=== PATIENT | female | born 1960 | race Caucasian/White ===

== ENCOUNTER 2016-12-25 07:05 | Day surgery (SDC) | payer BC ==
[~2016-12-25] VITALS: Ht 180.3 cm; Wt 102.1 kg
[~2016-12-25 07:05] MED LIST: BENADRYL25 MG PO; CYMBALTA30 MG PO; GABAPENTIN300 MG PO; NORCO 5-325 TA1 EACH PO; PRILOSEC20 MG PO; SIMVASTATIN20 MG PO; SUMATRIPTAN SUC25 MG SUB-Q
--- NOTE | 2016-12-25 08:42 | NUR ---
PT IS RESTING IN BED-ALERT,ORIENTED AND SUPPORTED BY HER MAGDI. PT HAS HAD BOTH SCOPE AND EGD BEFORE,AND SEEMED PREPARED. I FOUND BOTH TO BE PLEASANT AND PT REQUESTED PRAYER. WILL FOLLOW NEEDED
--- NOTE | 2016-12-25 09:54 | NUR ---
12/25/16 0954 Nilay Parsons SAT 100, O2 CHANGED TO 2L VIA NC.
--- NOTE | 2017-01-22 07:48 | OR ---
[facility] [address] [place], [place] [address] Signed DATE OF PROCEDURE: 12/25/16 PREOPERATIVE DIAGNOSES Family history of esophageal cancer (brother) and known reflux disease. History of tubular adenomas of colon, last colonoscopy 2013 ([place]). POSTOPERATIVE DIAGNOSES Distal ulcerative esophagitis with poor flap valve. Small polyp at 50 cm (excised). PROCEDURE PERFORMED Esophagogastroduodenoscopy with biopsy. Total colonoscopy to cecum with cold snare polypectomy x1 at 50 cm. SURGEON: Hiro Winn MD. ANESTHESIA: Intravenous sedation, Propofol infusion (Hiro Avitia CRNA). INDICATION This 55-year-old white woman is a patient of ARTIE Blanco, in [place], and has undergone colonoscopy and upper endoscopy in 2013 and 2011. She has been demonstrated to have tubular adenomas of the colon. She does have family history of esophageal cancer in her brother. She is known to have reflux herself and takes Omeprazole. It is unclear if she has Alicea's esophagus, but probably not. She is admitted at this time to undergo upper endoscopy on the basis of her reflux disease and family history of esophageal cancer as well as colonoscopy for surveillance of polyps. She does have "fibromyalgia" and has numerous medications, which will quite obviously impair routine intravenous sedation, and on that basis, Propofol infusional sedation is recommended. She understands as does her the risks of bleeding, infection, and perforation and wished to proceed with both upper and lower endoscopic evaluation. FINDINGS She was markedly tolerant to the Propofol infusion. She was administered at least 200 mcg/kg per minute of Propofol, normally an extremely high dose but just keeping her sedated without excessive sedation at all. The prep was good. On colonoscopy, there was a small sessile polyp at 50 cm, which was excised with snare polypectomy technique without cautery. Additionally, upper endoscopy demonstrated a poor flap valve and distal esophagitis with a linear type ulceration. There is no evidence of Alicea's epithelium. There was some small mucosal nodular changes of the mid esophagus that were innocuous. Remaining evaluation of the stomach, duodenum, and colon were normal. Electronically Signed By: HIRO WINN MD 01/22/17 0748 PATIENT NAME: REAL FIGUEROA OPERATIVE REPORT DATE OF : 64 PHYSICIAN: HIRO WINN MD REPORT #: [id number] REPORT IS CONFIDENTIAL AND NOT TO BE RELEASED WITHOUT AUTHORIZATION [facility] [address] [place], [place] [address] Signed DESCRIPTION OF PROCEDURE The patient was brought to the endoscopy suite and given topical Hurricaine spray hypopharyngeal anesthesia and placed in lateral decubitus position. She was given intravenous sedation with Propofol infusional technique. She required a surprisingly high amount of Propofol for adequate sedation. Full cardiopulmonary monitoring was maintained. The bite block was placed. An Olympus video upper endoscope passed in the hypopharynx. The vocal cords appeared normal. Scope was advanced into the esophagus throughout its length. It appeared normal except in the distal portion where there was a linear ulceration. It did not look neoplastic. There were no varices and no signs of Alicea's epithelium. The scope was advanced to the stomach, which was insufflated with air. Rugal folds appeared normal as did the antrum. There was mild erythematous streaking of the antrum, but no ulcer. Pylorus was normal. Scope was passed through into the duodenum. Biopsies were taken there of a normal appearing duodenum to assess for celiac disease. The scope was withdrawn and biopsies then taken of the antrum for both CL O and pathologic testing. Retroflexed view was undertaken showing a poor flap valve consistent with hiatal hernia. The scope was withdrawn to the distal esophagus and the ulcerated area evaluated with narrow band imaging. There is no sign of suspicion with the ulcer, but it was clearly reflux-related. Biopsies were obtained of that and the surrounding distal esophagus. Scope was withdrawn. There were few flat mucosal nodular changes, not worrisome but biopsied nevertheless. Scope was then removed. Plans were then made for colonoscopy. Digital rectal examination was normal and Olympus video colonoscope was passed in the rectum and manipulated throughout the colon. The colon appeared to be quite redundant. With abdominal wall stabilization, the scope could attain intubation of the cecum itself. The ileocecal valve and appendiceal orifice were normal. Scope was then withdrawn. Careful examination upon withdrawal of scope showed no sign of abnormality until approximately 50 cm from the anus where a sessile small polyp was noted. Narrow band imaging confirmed this to be almost certainly an adenoma. The lesion was excised with cold snare polypectomy technique. There was no untoward bleeding. Specimen was passed for pathology. The remaining colon including sigmoid and rectum including retroflexed view showed no other abnormalities. Scope was removed and the patient was taken to recovery room in good condition. CONCLUDING DIAGNOSES Distal esophageal ulcerative esophagitis. Sessile polyp, adenomatous type at 50 cm. PLAN We will review her pathology reports. We would recommend repeat endoscopic evaluation in 3 years, sooner if clinically indicated. It will be essential that she have Propofol for infusion as she is highly tolerant of sedating medications. She will return to the Electronically Signed By: HIRO WINN MD 01/22/17 0748 PATIENT NAME: REAL FIGUEROA OPERATIVE REPORT DATE OF : 64 PHYSICIAN: HIRO WINN MD REPORT #: [id number] REPORT IS CONFIDENTIAL AND NOT TO BE RELEASED WITHOUT AUTHORIZATION [facility] [address], [place] [address] Signed ongoing care of ARTIE Blanco, in [place]. MD GRECIA Raygoza/Leandra /[id number] cc: ARTIE Blanco Electronically Signed By: HIRO WINN MD 01/22/17 0748 PATIENT NAME: REAL FIGUEROA OPERATIVE REPORT DATE OF : 64 PHYSICIAN: HIRO WINN MD REPORT #: [id number] REPORT IS CONFIDENTIAL AND NOT TO BE RELEASED WITHOUT AUTHORIZATION
== END 2016-12-25 10:24 | disposition home or self-care (01) ==
LOC: OPS 07:05 → DS 07:05 → OPS 08:15
PROVIDERS: Surgery
PROC: 0DB28ZX Excision of Middle Esophagus, Via Natural or Artificial Opening Endoscopic, Diagnostic (ICD-10-PCS; 2016-12-25)
PROC: 0DB38ZX Excision of Lower Esophagus, Via Natural or Artificial Opening Endoscopic, Diagnostic (ICD-10-PCS; 2016-12-25)
PROC: 0DB68ZX Excision of Stomach, Via Natural or Artificial Opening Endoscopic, Diagnostic (ICD-10-PCS; 2016-12-25)
PROC: 0DBE8ZX Excision of Large Intestine, Via Natural or Artificial Opening Endoscopic, Diagnostic (ICD-10-PCS; principal; 2016-12-25 08:15)
PROC: 0DB98ZX Excision of Duodenum, Via Natural or Artificial Opening Endoscopic, Diagnostic (ICD-10-PCS; 2016-12-25 08:15)
DX: Z12.11 Encounter for screening for malignant neoplasm of colon (principal); D12.6 Benign neoplasm of colon, unspecified; K29.50 Unspecified chronic gastritis without bleeding; K22.10 Ulcer of esophagus without bleeding; K44.9 Diaphragmatic hernia without obstruction or gangrene; K20.9 Esophagitis, unspecified; Z88.2 Allergy status to sulfonamides; Z86.010 Personal history of colon polyps; Z98.890 Other specified postprocedural states
CPT/HCPCS: 00740; J2704; J7120

== ENCOUNTER 2018-04-21 06:00 | Day surgery (SDC) | payer BC ==
[~2018-04-21] VITALS: Ht 180.3 cm; Wt 99.8 kg
[~2018-04-21 06:00] MED LIST changes: +ACETAMINOPHEN-1 EACH PO
--- NOTE | 2018-04-21 08:14 | NUR ---
04/21/18 0814 Dalia Allen 0800- PT ARRIVES TO PACU AROUSABLE TO VOICE. REPORTS NO PAIN OR NAUSEA AND FALLS INSTANTLY BACK TO SLEEP. RESP EVEN AND UNLABORED. OXYGEN SAT MID TO HIGH 90'S ON 3L VIA NC. 0806- OXYGEN TURNED OFF. OXYGEN SAT REMAINS MID TO HIGH 90'S ON RA. RESP EVEN AND UNLABORED. 0810- PT SITTING UP IN BED REPORTS NO DIZZINESS, NAUSEA, OR PAIN. PT DRINKING WATER. TOLERATING WELL.
--- NOTE | 2018-04-23 11:43 | OR ---
[facility] [address] [place], [place] [address] Signed DATE OF OPERATION: 04/21/2018 SURGEON: Hiro Winn MD PREOPERATIVE DIAGNOSES: 1. Diffuse abdominal pain including epigastric, mid abdominal, and left lower quadrant. 2. Negative gallbladder ultrasound and CCK HIDA test. Negative pelvic ultrasound. 3. Daily alcohol use. POSTOPERATIVE DIAGNOSES: 1. Diffuse antral gastritis. 2. Hiatal hernia with mild distal esophagitis (probable gastritis related to persistent alcohol use). PROCEDURE: Esophagogastroduodenoscopy with biopsy. ANESTHESIA: Intravenous sedation, propofol infusion. Isabella Ruth CRNA. INDICATION: This 57-year-old white woman is a patient of ARTIE Alvarado and complains of diffuse abdominal pain. She is taking omeprazole on a daily basis. She has other problems of pain including chronic headache, back pain, and self described fibromyalgia. She drinks alcohol on a daily basis. Her evaluation has included empiric treatment with Prilosec, which is marginally beneficial as well as gallbladder ultrasound and a CCK HIDA test, which showed 100% ejection fraction without reproduction of her usual symptoms actually. There was noted that her brother had esophageal cancer. The patient was in [place] and underwent a transvaginal and transabdominal ultrasound, which showed a normal uterus. Her ovaries were not visualized due to bowel gas. She was at one time considered possibly to have ovarian cyst. Her current symptoms are primarily in the upper abdomen in the epigastric area. It is notable she drinks alcohol on a daily basis at least 3-4 drinks a day including wine and other hard liquor as well. She is admitted at this time to undergo upper endoscopy to better characterize the problem specifically to assess for ulceration. The risks of bleeding, infection, perforation, and so forth were reviewed with her. She understands and wished to Electronically Signed By: HIRO WINN MD 04/23/18 1143 PATIENT NAME: REAL FIGUEROA OPERATIVE REPORT DATE OF : 64 REPORT #: [id number] PHYSICIAN: HIRO WINN MD PCP: DEYSI PATEL NP REPORT IS CONFIDENTIAL AND NOT TO BE RELEASED WITHOUT AUTHORIZATION [facility] [address] [place], [place] [address] Signed proceed. FINDINGS: The esophagus had mild distal esophagitis, certainly no sign of Alicea's epithelium or neoplasm. There was a hiatal hernia. There was diffuse antral gastritis, but without ulceration. The pylorus was normal and the duodenum was reasonably normal. Biopsies were taken. CLOtest was negative 20 minutes post procedure. Most likely, her problem represents alcohol-related antral gastritis. DESCRIPTION OF PROCEDURE: The patient was brought to the operating room in the lateral decubitus position, was given intravenous sedation with propofol infusional technique with full cardiopulmonary monitoring. A bite block was placed. Hurricaine spray was used for topical anesthesia. After satisfactory sedation in the lateral decubitus position, an Olympus video upper endoscope was passed in the hypopharynx. The vocal cords appeared normal. Scope was advanced to the esophagus, appeared normal throughout except in the distal portion, there was mild inflammation. There was no Alicea's epithelium, stricture, neoplasm, or varices. The scope was passed to the stomach, which was insufflated with air. Rugal folds were normal. The antrum had diffuse gastritis included an erythematous streaking. The pylorus was normal. Scope was passed through into the duodenum, which was normal. There was no sign of ulceration or neoplasm. Biopsies were taken of the duodenum to assess for celiac disease. The scope was withdrawn to the antrum and biopsies then taken for both MARTY and pathologic testing. Retroflex view was undertaken confirming hiatal hernia. The scope was straightened and withdrawn and biopsies then taken of the distal esophagus. The scope was removed and the patient was taken to the recovery room in good condition. CONCLUDING DIAGNOSIS: Diffuse gastritis, most likely related to persistent alcohol use. PLAN: We will recommend continued use of omeprazole, but additionally have a Carafate 1 g p.o. q.i.d. on empty stomach. We would recommend complete cessation of alcohol use gradually. She may return when she returns from her trip to [place], which was planned soon. Hiro Winn MD Electronically Signed By: HIRO WINN MD 04/23/18 1143 PATIENT NAME: REAL FIGUEROA OPERATIVE REPORT DATE OF : 64 REPORT #: [id number] PHYSICIAN: HIRO WINN MD PCP: DEYSI PATEL NP REPORT IS CONFIDENTIAL AND NOT TO BE RELEASED WITHOUT AUTHORIZATION [facility] [address] [place], [place] [address] Signed GRECIA/DESEANL /[id number] cc: Deysi Patel NP Copies: DEYSI PATEL NP ~ Electronically Signed By: HIRO WINN MD 04/23/18 1143 PATIENT NAME: REAL FIGUEROA OPERATIVE REPORT DATE OF : 64 REPORT #: [id number] PHYSICIAN: HIRO WINN MD PCP: DEYSI PATEL NP REPORT IS CONFIDENTIAL AND NOT TO BE RELEASED WITHOUT AUTHORIZATION
== END 2018-04-21 08:45 | disposition home or self-care (01) ==
LOC: OPS 06:00 → DS 06:00 → OPS 06:45
PROVIDERS: Surgery
PROC: 0DB98ZX Excision of Duodenum, Via Natural or Artificial Opening Endoscopic, Diagnostic (ICD-10-PCS; 2018-04-21)
PROC: 0DB38ZX Excision of Lower Esophagus, Via Natural or Artificial Opening Endoscopic, Diagnostic (ICD-10-PCS; 2018-04-21)
PROC: 0DB78ZX Excision of Stomach, Pylorus, Via Natural or Artificial Opening Endoscopic, Diagnostic (ICD-10-PCS; principal; 2018-04-21 06:45)
DX: K29.50 Unspecified chronic gastritis without bleeding (principal); K21.0 Gastro-esophageal reflux disease with esophagitis; K44.9 Diaphragmatic hernia without obstruction or gangrene; M79.7 Fibromyalgia; E66.9 Obesity, unspecified; Z88.2 Allergy status to sulfonamides; Z86.010 Personal history of colon polyps; Z87.891 Personal history of nicotine dependence; Z72.89 Other problems related to lifestyle; Z79.899 Other long term (current) drug therapy; Z68.30 Body mass index [BMI] 30.0-30.9, adult
CPT/HCPCS: J2250; J2704; J3010; J7120

== ENCOUNTER 2020-02-06 06:27 | Day surgery (SDC) | payer BC ==
[~2020-02-06] VITALS: Ht 180.3 cm; Wt 104.5 kg
--- NOTE | 2020-02-06 08:42 | NUR ---
02/06/20 0842 Romina Mancuso 0827 PATIENT ARRIVES TO PACU RESTING WITH EYES CLOSED. AWAKENS WITH VERBAL STIMULI, ANSWERS QUESTIONS APPROPRIATELY, THEN BACK TO SLEEP. 0835 PATIENT AWAKE. TALKING WITH STAFF. DENIES PAIN OR NAUSEA. RESP EVEN AND UNLABORED, ROOM AIR SATS >95%.
--- NOTE | 2020-02-06 09:26 | NUR ---
PT ALERT, ORIENTED AND SUPPORTED BY HER MAGDI. PT HAS PREVIOUS SCOPES, TOLERATED PREP APPROPRIATELY.ALL QUESTIONS ASKED WERE ANSWERED. PT DID REQUEST PRAYER. WILL FOLLOW
--- NOTE | 2020-02-06 15:35 | OR ---
[facility] [address] [place], [place] [address] Signed DATE OF OPERATION: 02/06/2020 SURGEON: Hiro Winn MD PREOPERATIVE DIAGNOSES: 1. Globus type symptoms of upper esophagus; currently on omeprazole and Carafate. 2. Family history of esophageal cancer. 3. History of tubular adenoma of colon and bowel habit changes, diarrhea alternating with constipation. POSTOPERATIVE DIAGNOSES: 1. Large hiatal hernia with mild esophagitis, no evidence of stricture, neoplasm or Alicea's esophagus. 2. Diverticular changes in sigmoid colon, mild proctitis (probably bowel prep related). PROCEDURE: 1. Esophagogastroduodenoscopy with biopsy. 2. Total colonoscopy to cecum with biopsy of rectum. ANESTHESIA: Intravenous sedation, propofol infusion; Tricia Lemos CRNA. INDICATIONS: This 59-year-old obese white woman is a patient of ARTIE Alvarado in [place]. She has had vague complaints of the upper esophagus including a feeling of tightness in her throat from time to time as well as "gurgling" in cervical esophagus. She has had no hematemesis and no true dysphagia. Notably her brother of esophageal cancer. As regards to colon, she has diarrhea alternating with constipation. She has undergone colonoscopy in the past, which showed a tubular adenoma. She is admitted at this time to undergo upper endoscopy and colonoscopy. She understands the risks of bleeding, infection, and perforation. FINDINGS: Upper endoscopy showed a rather large hiatal hernia. There was mild distal esophagitis, but no Alicea's esophagus and certainly no neoplasm. Midesophageal mucosa did have a somewhat corrugated appearance, but not that typical of eosinophilic esophagitis. Biopsies were obtained nevertheless of course. The duodenum and stomach were normal. On colonoscopy, the prep was quite good. Complete colonoscopy was undertaken, cecum Electronically Signed By: HIRO WINN MD 02/06/20 1535 PATIENT NAME: REAL FIGUEROA OPERATIVE REPORT DATE OF : 64 REPORT #: [id number] PHYSICIAN: HIRO WINN MD PCP: DEYSI GRIFFITH NP REPORT IS CONFIDENTIAL AND NOT TO BE RELEASED WITHOUT AUTHORIZATION [facility] [address] [place], [place] [address] Signed without question. She had no sign of recurrent polyp. She did have diverticular changes of the sigmoid. Biopsies taken of the rectum as there was mild inflammation probably bowel prep related. DESCRIPTION OF PROCEDURE: The patient was brought to the endoscopy suite and given topical Hurricaine spray hypopharyngeal anesthesia and placed in lateral decubitus position. She was given intravenous sedation with propofol infusional technique by the graduate recruiter. A bite block was placed. An Olympus video upper endoscope was passed by hypopharynx. Vocal cords appeared normal. Scope was passed in the esophagus. Throughout its length, it showed no sign of Alicea's epithelium or neoplasm or stricture. The scope was passed in the stomach, which was insufflated with air. Rugal folds were normal. Antral motility was normal. Pylorus was normal. Scope was passed into the duodenum, which was normal. Biopsies were taken of the duodenum in both the 2nd and more proximal portions. The scope was withdrawn to the antrum biopsies for both MARTY and pathologic testing. Retroflex view was undertaken showing a very dysmorphic flap valve and essentially large hiatal hernia. The scope was withdrawn to the distal esophagus and biopsies obtained there, though again there was no sign of stricture or neoplasm or varices or Alicea's. The scope was withdrawn to the mid esophagus and biopsies obtained there. As there was somewhat of a corrugated appearance suggestive of the eosinophilic esophagitis, though not completely typical of that. The scope was then withdrawn. Plans were then made for colonoscopy. Digital rectal examination was normal. An Olympus video colonoscope was passed in the rectum and manipulated throughout the colon ultimately intubating the cecum itself. The ileocecal valve and appendiceal orifice were normal. The scope was withdrawn, examination throughout showed no sign of abnormality other than diverticulosis of the sigmoid colon. Retroflexed view showed mild proctitis. Biopsy was obtained though likely this was not a worrisome finding. The scope was removed and the patient was taken to the recovery room in good condition. CONCLUDING DIAGNOSIS: The cause of her cervical symptoms is uncertain, but likely related to reflux. At this point, I would recommend continued use of PPI medication (omeprazole). If Carafate is providing some benefit to her that is reasonable to continue, but probably redundant and not typically beneficial in esophagitis particularly. As regards to colon, we will recommend high-fiber diet or fiber supplement such as Metamucil or Citrucel powder daily. We would recommend a repeat colonoscopy in 10 years sooner if symptoms should occur. She will return to the ongoing care of ARTIE Alvarado in [place]. Electronically Signed By: HIRO WINN MD 02/06/20 1535 PATIENT NAME: REAL FIGUEROA OPERATIVE REPORT DATE OF : 64 REPORT #: [id number] PHYSICIAN: HIRO WINN MD PCP: DEYSI GRIFFITH NP REPORT IS CONFIDENTIAL AND NOT TO BE RELEASED WITHOUT AUTHORIZATION [facility] [address] [facility] [place], [place] [address] Signed MD GRECIA Raygoza/MODL /[id number] cc: [place] Copies: ~ Electronically Signed By: HIRO WINN MD 02/06/20 1535 PATIENT NAME: REAL FIGUEROA OPERATIVE REPORT DATE OF : 64 REPORT #: [id number] PHYSICIAN: HIRO WINN MD PCP: DEYSI GRIFFITH NP REPORT IS CONFIDENTIAL AND NOT TO BE RELEASED WITHOUT AUTHORIZATION
--- NOTE | 2020-02-07 12:33 | PATH ---
[facility] [address] [place], [place] [address] Signed SPECIMEN(S): A DUODENAL BIOPSY SPECIMEN(S): B ANTRUM/PYLORUS SPECIMEN(S): C LOWER ESOPHAGUS SPECIMEN(S): D MIDDLE ESOPHAGUS SPECIMEN(S): E RECTUM SPECIMEN SOURCE: A. DUODENAL BIOPSY B. ANTRUM/PYLORUS C. LOWER ESOPHAGUS D. MIDDLE ESOPHAGUS E. RECTUM CLINICAL HISTORY: GERD, family history esophageal ca, history colon polyps. Esophagogastroduodenoscopy, colonoscopy with Propofol with possible biopsies. MICROSCOPIC DESCRIPTION: Histologic sections of all submitted blocks are examined by light microscopy. These findings, together with the gross examination, support the pathologic diagnosis. FINAL PATHOLOGIC DIAGNOSIS: A. Duodenum, biopsy: - Duodenal mucosa with no histopathologic abnormality. - Negative for increased intraepithelial lymphocytes. - Negative for dysplasia or malignancy. B. Stomach, antrum/pylorus, biopsy: - Antral mucosa with mucosal capillary congestion and mild reactive changes. - Negative for Helicobacter organisms on HE stain. - Negative for dysplasia or malignancy. C. Esophagus, lower, biopsy: - Squamous mucosa with minimal reactive changes. - Negative for intestinal metaplasia, dysplasia, or malignancy. D. Esophagus, middle, biopsy: - Squamous mucosa with no histopathologic abnormality. - Negative for dysplasia or malignancy. E. Rectum, biopsy: - Rectal mucosa with no histopathologic abnormality. - Negative for active or chronic proctitis. - Negative for dysplasia or malignancy. NAL:cml:[id number] PATIENT NAME: MAURICIO FIGUEROARA GOTTI PATHOLOGY DATE OF : 64 REPORT #: [id number] PHYSICIAN: KANWAL MORALES PCP: DEYSI GRIFFITH NP REPORT IS CONFIDENTIAL AND NOT TO BE RELEASED WITHOUT AUTHORIZATION [facility] [address] [place], [place] [address] Signed GROSS DESCRIPTION: Five specimens are received in five containers, labeled "SN." A. The specimen, labeled "SN, duodenal biopsy," is received in formalin and consists of two estrella soft tissue fragments that measure 0.2 cm in greatest dimension. The specimen is entirely submitted in cassette (A1). B. The specimen, labeled "SN, antrum biopsy," is received in formalin and consists of two estrella soft tissue fragments that measure 0.1-0.2 cm in greatest dimension. The specimen is entirely submitted in cassette (B1). C. The specimen, labeled "SN, lower esophagus," is received in formalin and consists of two estrella soft tissue fragments that measure 0.2 cm in greatest dimension. The specimen is entirely submitted in cassette (C1). D. The specimen, labeled "SN, middle esophagus biopsy," is received in formalin and consists of two estrella soft tissue fragments that measure 0.2-0.3 cm in greatest dimension. The specimen is entirely submitted in cassette (D1). E. The specimen, labeled "SN, rectum biopsy," is received in formalin and consists of two estrella soft tissue fragments that measure 0.1 cm in greatest dimension. The specimen is entirely submitted in cassette (E1). JS (under the direct supervision of a pathologist) The Gross Description was prepared using a voice recognition system. The report was reviewed for accuracy; however, sound-alike word errors, addition and/or deletions may occur. If there is any question about this report, please contact Client Services. PERFORMING LABORATORY: The technical component was performed by [employer] [address] [place] [id number] (External Relations Manager: Carley Sutherland MD; CLIA# [id number]). Professional interpretation was performed by [facility], [address] [address], [place] [address] (CLIA# [id number]). Diagnostician: Khadra Denis MD Pathologist Electronically Signed 02/07/2020 PATIENT NAME: REAL FIGUEROA PATHOLOGY DATE OF : 64 REPORT #: [id number] PHYSICIAN: KANWAL PATHOLOGY PCP: DEYSI GRIFFITH NP REPORT IS CONFIDENTIAL AND NOT TO BE RELEASED WITHOUT AUTHORIZATION [facility] [address] [facility] [place], [place] [address] Signed Copies: ~ PATIENT NAME: REAL FIGUEROA PATHOLOGY DATE OF : 64 REPORT #: [id number] PHYSICIAN: KANWAL PATHOLOGY PCP: DEYSI GRIFFITH NP REPORT IS CONFIDENTIAL AND NOT TO BE RELEASED WITHOUT AUTHORIZATION
== END 2020-02-06 09:00 | disposition home or self-care (01) ==
LOC: OPS 06:27 → DS 06:27 → OPS 06:45 → DS 06:45 → OPS 09:00
PROVIDERS: ATTEND Surgery
PROC: 0DB78ZX Excision of Stomach, Pylorus, Via Natural or Artificial Opening Endoscopic, Diagnostic (ICD-10-PCS; 2020-02-06)
PROC: 0DB28ZX Excision of Middle Esophagus, Via Natural or Artificial Opening Endoscopic, Diagnostic (ICD-10-PCS; 2020-02-06)
PROC: 0DBP8ZX Excision of Rectum, Via Natural or Artificial Opening Endoscopic, Diagnostic (ICD-10-PCS; 2020-02-06)
PROC: 0DB38ZX Excision of Lower Esophagus, Via Natural or Artificial Opening Endoscopic, Diagnostic (ICD-10-PCS; principal; 2020-02-06 06:45)
PROC: 0DB98ZX Excision of Duodenum, Via Natural or Artificial Opening Endoscopic, Diagnostic (ICD-10-PCS; 2020-02-06 06:45)
DX: K21.00 Gastro-esophageal reflux disease with esophagitis, without bleeding (principal); K44.9 Diaphragmatic hernia without obstruction or gangrene; K57.30 Diverticulosis of large intestine without perforation or abscess without bleeding; K62.89 Other specified diseases of anus and rectum; M79.7 Fibromyalgia; E66.9 Obesity, unspecified; Z88.8 Allergy status to other drugs, medicaments and biological substances; Z88.2 Allergy status to sulfonamides; Z79.899 Other long term (current) drug therapy; Z86.010 Personal history of colon polyps; Z87.891 Personal history of nicotine dependence; Z80.0 Family history of malignant neoplasm of digestive organs; Z68.32 Body mass index [BMI] 32.0-32.9, adult
CPT/HCPCS: J2001; J2704

== ENCOUNTER 2020-07-18 08:00 | Day surgery (SDC) | payer BC ==
[~2020-07-18] VITALS: Ht 180.3 cm; Wt 102.3 kg
--- NOTE | ~2020-07-18 | OR ---
[facility] [address], [place] [address] Draft DATE OF OPERATION: 07/18/2020 SURGEON: Oscar Rivera MD PREOPERATIVE DIAGNOSIS: 1. Left chronic frontal sinusitis. 2. Right sphenoid chronic sinusitis of the sphenoid sinuses and maxillary sinuses. POSTOPERATIVE DIAGNOSES: 1. Left chronic frontal sinusitis. 2. Right sphenoid chronic sinusitis of the sphenoid sinuses and maxillary sinuses. 3. Sinus headaches. 4. Recurring acute sinusitis. PROCEDURE: 1. Left frontal sinusotomy, endoscopic, 18344. 2. Right sphenoidotomy, 708[address]. INDICATIONS: This 59-year-old female had sinus surgery several years ago, has chronic inflammatory disease, which has gradually impinged the draining of previously opened sinuses of the sphenoid, maxillary sinuses, and frontal sinuses. Most importantly, however, the endoscopic exam and CT scans showed a poorly draining right sphenoid sinus, which was nearly opacified and intermittent infection with swelling on the left side with the nasofrontal duct closing off in a narrow sinus labyrinth producing chronic pain especially in the mornings in the forehead and the base of the occiput. The patient is being maintained for allergic rhinitis and immunotherapy to try to decrease inflammatory disease, but so far is failing medical treatment in these areas and revision to open things were wider and clear out the sinuses felt to help her symptomatology when medical treatment had failed. DESCRIPTION OF PROCEDURE: The patient was placed in the supine position, had an orotracheal intubation, was placed under general anesthesia. Preop, intraoperative, and postop photographs were taken. The patient's left maxillary sinus had a much smaller opening in the right side and to help that irrigate better more of the fontanelle was taken down with the Thru-Cut ethmoid punch on that posterior fontanelle. After 2 mL of 1% lidocaine with 1:200,000 epinephrine been injected into the area of the right middle turbinates, more the anterior-inferior portion was removed, so with the endoscope better in the office, also some suction cautery was used to stop the oozing vessel on the middle turbinates. The PATIENT NAME: REAL FIGUEROA OPERATIVE REPORT DATE OF : 64 REPORT #: [id number] PHYSICIAN: OSCAR RIVERA MD PCP: DEYSI GRIFFITH NP REPORT IS CONFIDENTIAL AND NOT TO BE RELEASED WITHOUT AUTHORIZATION [facility] [address] [facility] [place], [place] [address] Draft sphenoid sinus was examined on the right side. There was still some inflammatory tissue on the floor of the frontal sinus. The ostium was enlarged, taking down the bone going up to the roof of the sphenoid sinus and then taking more down, so that the ostium was much wider, could irrigate better. The left frontal sinus which was seen to have a wisp of pus coming out of its with swollen mucosa. The frontal sinus instruments were used to carefully remove as much bone as possible and some of the diseased mucosa up in the frontal sinus was sharply cut rather than trying to pull it out by avulsion. Also, the sphenoid sinus ostium on the left side was widened further. The right frontal sinus needed nothing, and the right maxillary sinus needs nothing as well, but as much could be removed to make sure that had good access to rinsing and endoscopic exam and cleaning were done. The estimated blood loss was about 25 mL. No packing required. The patient was sent to the recovery room in good condition. Prior to extubation, the sinus labyrinth was again photographed, showing the improvements. Oscar Rivera MD [facility] /[id number] Copies: ~ PATIENT NAME: REAL FIGUEROA OPERATIVE REPORT DATE OF : 64 REPORT #: [id number] PHYSICIAN: OSCAR RIVERA MD PCP: DEYSI GRIFFITH NP REPORT IS CONFIDENTIAL AND NOT TO BE RELEASED WITHOUT AUTHORIZATION
[~2020-07-18 08:00] MED LIST changes: +ACETAMINOPHEN325 M1 PO
--- NOTE | 2020-07-18 12:04 | NUR ---
07/18/20 1204 Ann-Marie Little 1158-PATIENT ARRIVED TO PACU ON 6L MASK RR EVEN NONAROUSABLE. IVF INFUSING. SR. PATIENT HAS GAUZE TO NOSE WITH TAPE CDI.
--- NOTE | 2020-07-18 12:46 | NUR ---
PATIENT BACK IN DAY SURGERY ROOM FROM PACU. DENIES PAIN EXCEPT FOR SORE THROAT. PATIENT GIVEN ICE WATER. VS CHECKED. PATIENT TRANSITIONED TO ROOM AIR. 93% ON ROOM AIR. IV SITE WNL. SCDs ON. NASAL DRIP PAD IN PLACE, CLEAN AND DRY. AT BEDSIDE. CALL LIGHT WITHIN REACH.
[2020-07-18] MEDS ORDERED: ULTRAM50 MG PO (13:16)
--- NOTE | 2020-07-18 14:30 | NUR ---
1330: VS CHECKED. DISCHARGE INSTRUCTIONS GIVEN TO PATIENT AND . PATIENT ASSISTED OOB AND TO WALK AROUND ROOM. MOUSTACHE DRESSING REMOVED BY PATIENT. INCREASED DRAINAGE FROM NOSE ONCE PATIENT STOOD AND WALKED AROUND ROOM. PATIENT DRESSING WITH HELP FROM . 1342: OFFERED TO REPLACE MOUSTACHE DRESSING. PATIENT DECLINED. SUPPLIES FOR MOUSTACHE DRESSING SENT HOME WITH PATIENT. IV DC'D WNL. TIP INTACT. DRESSING APPLIED. PATIENT DISCHARGED TO HOME WITH VIA WHEELCHAIR.
== END 2020-07-18 13:42 | disposition home or self-care (01) ==
LOC: DS 08:00 → OPS 08:00 → DS 08:15 → OPS 13:42
PROVIDERS: ATTEND Otolaryngology
PROC: 099W8ZZ Drainage of Right Sphenoid Sinus, Via Natural or Artificial Opening Endoscopic (ICD-10-PCS; 2020-07-18)
PROC: 099T8ZZ Drainage of Left Frontal Sinus, Via Natural or Artificial Opening Endoscopic (ICD-10-PCS; principal; 2020-07-18 08:15)
DX: J32.1 Chronic frontal sinusitis (principal); J32.3 Chronic sphenoidal sinusitis; J01.91 Acute recurrent sinusitis, unspecified; J32.0 Chronic maxillary sinusitis; J30.9 Allergic rhinitis, unspecified; M79.7 Fibromyalgia; Z88.2 Allergy status to sulfonamides
CPT/HCPCS: 00160; 99153; G0500; J0330; J1100; J2001; J2405; J2704; J3010; J7121

== ENCOUNTER 2022-08-14 12:21 | Emergency (ER) | payer BC ==
[~2022-08-14] VITALS: Ht 180.3 cm; Wt 97.2 kg
[~2022-08-14 12:21] MED LIST changes: +ULTRAM50 MG PO
[2022-08-14] MEDS ORDERED: ONDANSETRON ODT8 MG PO (17:29)
[2022-08-14] MEDS ORDERED: DICYCLOMINE HCL20 MG PO (17:29)
[2022-08-14 17:34] VITALS: BP 108/73
== END 2022-08-14 17:42 | disposition home or self-care (01) ==
LOC: ED 12:21
DX: K52.9 Noninfective gastroenteritis and colitis, unspecified (principal); K76.0 Fatty (change of) liver, not elsewhere classified; K21.9 Gastro-esophageal reflux disease without esophagitis; Z87.891 Personal history of nicotine dependence
CPT/HCPCS: 36415; 74177; 80053; 81003; 83690; 85025; 96361; 99284-25; J2405; J7040

== ENCOUNTER 2023-03-21 05:20 | Inpatient (IN) | payer BC ==
[~2023-03-21] VITALS: Ht 180.3 cm; Wt 93.0 kg
[~2023-03-21 05:20] MED LIST changes: +DICYCLOMINE HCL20 MG PO; +ONDANSETRON ODT8 MG PO
[2023-03-21] MEDS ORDERED: BUPROPION HCL75 MG PO (05:40)
[2023-03-21] MEDS ORDERED: PROZAC10 MG PO (05:40)
[2023-03-21 05:54] LABS: BASOPHILS 0.6 % (0-2); EOSINOPHILS 0.3 % (0-6); HEMATOCRIT 44.1 % (35.0-50.0); HEMOGLOBIN 14.9 g/dL (12.0-18.0); MCH 33.7 (27-36); MCHC 33.8 g/dl (30-36); MCV 99.7 fl (81-99); MONOCYTES 8.2 % (0-12); NEUTROPHILS 71.9 % (39-80); PLATELET COUNT 204 K/uL (140-440); RBC 4.42 M/ul (4.3-5.7); RDW 15.9 (10.5-15.0)
[2023-03-21 05:55] LABS: BILIRUBIN, URINE NEGATIVE (negative); BLOOD/HGB, URINE NEGATIVE (Negative); KETONE, URINE TRACE (Negative); LEUK ESTERASE, URINE NEGATIVE (negative); NITRITE, URINE NEGATIVE (negative)
[2023-03-21 06:10] LABS: ALBUMIN 3.4 g/dL (3.4-5.0); ALBUMIN/GLOBULIN RATIO 0.71 (1.1-2.4); ANION GAP 15.2 (7-21); BILIRUBIN, TOTAL 1.2 ng/dL (0.2-1.0); BUN/CREATININE RATIO 9.23 (6.0-28.6); CREATININE, SERUM 0.65 mg/dL (0.55-1.02); POTASSIUM 3.2 mmol/L (3.5-5.1); PROTEIN, TOTAL 8.2 g/dL (6.4-8.2)
[2023-03-21 09:11] VITALS: BP 125/74
[2023-03-21] MEDS ORDERED: ESTRADIOL42.5 GM VAGINAL (10:52)
[2023-03-21] MEDS ORDERED: FLUOXETINE HCL20 MG PO (10:55)
[2023-03-21] MEDS ORDERED: OMEPRAZOLE20 MG PO (10:56)
[2023-03-21 14:06] VITALS: BP 107/63
[2023-03-21 14:08] LABS: INR 1.03 (0.80-1.30); PROTIME 13.1 Sec (11.2-14.2)
--- NOTE | 2023-03-21 14:51 | CONS ---
[facility] [address] [place], [place] [address] Signed DATE OF CONSULTATION: 03/21/2023 CHIEF COMPLAINT: Right upper quadrant abdominal pain. 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 Her is a retired calculating machine mechanic. She is a little more than 10 years younger than her . She finally retired herself I think mainly because of some health issues and anxiety. She and her were drinking multiple mixed drinks and whiskey every day for years. They finally quit about a year and a half ago when she was having trouble with her liver. She is actually going up to [place], [place] to see the Gastroenterology group at [facility]. She is following along with her physician's fire control assistant, Dulce Nixon. Their phone is [phone]. Initially, the labs I guess were quite concerning, but she quit drinking and I guess her labs have improved. I went back on our radiology system and I can see back to 2019 she had a fatty liver but no stones in the gallbladder and the common bile duct was unremarkable. She was seeing the other general surgeon in town. She then had a HIDA scan done that same year and ejection fraction was 100%, it reproduced her symptoms. I do not believe she went back to have her gallbladder out. She would not give me that detail. In 2019, she does have a fatty liver and a duodenal diverticulum on the mesenteric side and 2nd part of the duodenum. She has a moderate hiatal hernia and the gallbladder seemed unremarkable. By 2021, the left lobe of the liver is becoming atrophic and looks like she might have some stenosis in that left hepatic vein. Of course, the hiatal hernia and the steatosis, but no ascites. She had a very limited ultrasound in 2021 just to check for ascites and apparently that was negative. In July of 2022, the CT scan showed decreased blood flow to the liver compared to the spleen. There was concern about some mild portal hypertension around the proximal jejunum versus maybe some gastroenteritis. There was also some concern about something behind the gallbladder and the liver. Possibly a tumor. 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 There was cirrhosis of the liver, but there was no obvious tumor. She presents to the emergency room with recurrent epigastric right upper quadrant abdominal pain with bloating, nausea and vomiting. Laboratory work is not overly concerning as listed below. CT scan showed the gallbladder wall thickening, the atrophy left lobe of the liver, some pericholecystic inflammatory changes and a moderate hiatal hernia. Ultrasound confirms the gallbladder wall was 9 mm in thickness with a positive Painting sign, the gallbladder coming right up to the abdominal wall, but the common bile duct is good at 5 mm and there is probably some sludge in her gallbladder, but no obvious stones. Consequently, I have been asked to admit her as a general surgeon chemist instrumentation last night. Unfortunately, none of this detail was available. She did receive some cefepime and Flagyl. Her is here with her today. Electronically Signed By: BON PATRICK MD 03/21/23 7175 PATIENT NAME: GLENNA FIGUEROA CONSULTATION DATE OF : 64 REPORT #: [id number] PHYSICIAN: BON PATRICK MD PCP: PATRICIA GRIFFITH NP REPORT IS CONFIDENTIAL AND NOT TO BE RELEASED WITHOUT AUTHORIZATION [address] [address] Signed PAST MEDICAL HISTORY: Fibromyalgia, gastroesophageal reflux disease, [id number] hiatal hernia, hyperlipidemia, migraine headaches, fatty liver and cirrhosis of liver associated with alcohol intake. PAST SURGICAL HISTORY: Includes repair of her fractured sternum, ACL repair, ankle fracture, right lumpectomy, bilateral breast reduction, bilateral tubal ligation. SOCIAL HISTORY: She does not smoke. She was drinking very heavy for many years at least 3 to 4 drinks of whiskey or mixed drinks a day, but finally quit around a year and a half ago, although she relapsed for a short time. She still uses some marijuana in the evenings to help go to sleep. Her is Candelario at [phone] and he is a retired calculating machine mechanic. She is a retired general accounting clerk. Her primary care provider is Patricia Griffith who is a nurse practitioner in [place], [place] at [phone]. They prefer the [facility] here in [place], [place]. She follows along with the Gastroenterology group at [facility] in [place], [place] with their physician's fire control assistant Dulce Nixon at [phone]. FAMILY HISTORY: Brother of esophageal cancer. REVIEW OF SYSTEMS: She had 10 systems reviewed and she spoke to me mostly about her liver. ALLERGIES: Sulfa. MEDICATIONS: Gabapentin, omeprazole, sumatriptan, buspirone, and fluoxetine. PHYSICAL EXAMINATION: VITAL SIGNS: Her blood pressure is 125/74, heart rate is 69, respiratory rate is 20, temperature is 97.3. She is 98% on room air. She is 5 feet 11 inches tall at 93 kg with a body mass index of 28. GENERAL: Glenna is a 62-year-old female, lying supine in her hospital bed. She has the typical thin arms and legs associated with liver failure. She has a somewhat large abdomen. She is not jaundiced. She is not systemically ill or toxic. LUNGS: Clear to auscultation bilaterally. HEART: Regular rate and rhythm without murmurs. ABDOMEN: Soft with some mild tenderness in the right upper quadrant. She has a large abdomen somewhat full, but I cannot feel a specific fluid wave. Electronically Signed By: BON PATRICK MD 03/21/23 1451 PATIENT NAME: GLENNA FIGUEROA CONSULTATION DATE OF : 64 REPORT #: [id number] PHYSICIAN: BON PATRICK MD PCP: PATRICIA GRIFFITH NP REPORT IS CONFIDENTIAL AND NOT TO BE RELEASED WITHOUT AUTHORIZATION [facility] [address] [place], [place] [address] Signed LABORATORY DATA: Her white blood cell count is 6.2, hemoglobin 14, mean cell volume is 99, neutrophils are 71, platelet count is 204. Potassium 3.2, BUN 6, creatinine 0.65, glucose 125. Her urine is negative. Total bilirubin 1.2, AST 73, ALT 59, alkaline phosphatase 93, albumin 3.4, lipase 32. RADIOGRAPHIC STUDIES: CT scan of abdomen and pelvis is reviewed and I can see the gallbladder wall is a little thickened. She has significant atrophy of the left lobe of the liver. There are some mild pericholecystic inflammatory changes. She has a moderate hiatal hernia. The ultrasound confirms 9 mm thickened gallbladder wall with a positive Painting sign and common bile duct 5 mm with some sludge in the gallbladder, but no obvious stones. ASSESSMENT AND PLAN: Glenna is a 62-year-old female, who presents with what appears to be acute cholecystitis and cholelithiasis in the form of sludge associated with cirrhosis of her liver. Fortunately, her liver failure is not terrible based on what we see on the radiographic studies and her in her laboratory work. Nevertheless, she is at significant risk for surgery. She did fill in the detail regarding her doctors up in [place], [place]. At this point, we are going to admit her, start her on IV fluids and antibiotics. We will see if this will settle down. She may need percutaneous drain. In the end, she may or may not need the gallbladder removed depending on how she responds. This is a holiday weekend and so I am not able to contact her physicians up in [place]. I will contact one of our liver surgeons here in the [facility] and see about some input in that regard. She and her have expressed understanding and agreed with the above plan. Bon Patrick MD ALB/MODL /[id number] cc: MD Patricia Lacy NP Leah Gilbert, PA Electronically Signed By: BON PATRICK MD 03/21/23 1451 PATIENT NAME: GLENNA FIGUEROA CONSULTATION DATE OF : 64 REPORT #: [id number] PHYSICIAN: BON PATRICK MD PCP: PATRICIA GRIFFITH NP REPORT IS CONFIDENTIAL AND NOT TO BE RELEASED WITHOUT AUTHORIZATION [facility] [address] [place] [id number] Signed Copies: BON PATRICK MD ~ Electronically Signed By: BON PATRICK MD 03/21/23 1451 PATIENT NAME: GLENNA FIGUEROA CONSULTATION DATE OF : 64 REPORT #: [id number] PHYSICIAN: BON PATRICK MD PCP: PATRICIA GRIFFITH NP REPORT IS CONFIDENTIAL AND NOT TO BE RELEASED WITHOUT AUTHORIZATION
[2023-03-21 17:09] VITALS: BP 98/63
[2023-03-21 20:22] VITALS: BP 103/67
--- NOTE | 2023-03-21 22:12 | EKG ---
[facility] [address] [facility] [place] [address] Signed Normal sinus rhythm Prolonged QT Abnormal ECG No previous ECGs available Confirmed by Yann Harding MD () on 03/21/2023 10:12:42 PM Electronically Signed By: YANN HARDING MD 03/21/232211 PATIENT NAME: REAL FIGUEROA Electrocardiogram DATE OF : 64 PHYSICIAN: YANN HARDING MD REPORT #: [id number] REPORT IS CONFIDENTIAL AND NOT TO BE RELEASED WITHOUT AUTHORIZATION
[2023-03-22 02:45] VITALS: BP 110/62
[2023-03-22 05:36] LABS: BASOPHILS 0.3 % (0-2); EOSINOPHILS 0.3 % (0-6); HEMOGLOBIN 13.7 g/dL (12.0-18.0); LYMPHOCYTES 16.6 % (24-44); MCH 33.5 (27-36); MCHC 33.3 g/dl (30-36); MCV 100.6 fl (81-99); MONOCYTES 15.3 % (0-12); NEUTROPHILS 67.5 % (39-80); PLATELET COUNT 185 K/uL (140-440); RBC 4.07 M/ul (4.3-5.7); RDW 15.2 (10.5-15.0)
[2023-03-22 05:46] VITALS: BP 120/70
[2023-03-22 06:04] LABS: ALBUMIN 2.8 g/dL (3.4-5.0); ALBUMIN/GLOBULIN RATIO 0.64 (1.1-2.4); ANION GAP 10.4 (7-21); BILIRUBIN, TOTAL 1.3 ng/dL (0.2-1.0); BUN/CREATININE RATIO 7.01 (6.0-28.6); CALCIUM 8.6 mg/dL (8.5-10.1); CREATININE, SERUM 0.57 mg/dL (0.55-1.02); POTASSIUM 3.4 mmol/L (3.5-5.1); PROTEIN, TOTAL 7.2 g/dL (6.4-8.2)
[2023-03-22 06:28] LABS: MAGNESIUM 1.9 mg/dL (1.8-2.4)
[2023-03-22 08:57] VITALS: BP 136/76
[2023-03-22 13:10] VITALS: BP 121/73
[2023-03-22 18:50] VITALS: BP 116/71
[2023-03-22 20:52] VITALS: BP 99/61
[2023-03-23 01:01] LABS: PREALBUMIN 15.8 mg/dL (20.0-40.0)
[2023-03-23 05:28] LABS: BASOPHILS 0.2 % (0-2); EOSINOPHILS 0.1 % (0-6); HEMATOCRIT 42.1 % (35.0-50.0); HEMOGLOBIN 14.1 g/dL (12.0-18.0); LYMPHOCYTES 17.9 % (24-44); MCH 33.3 (27-36); MCHC 33.5 g/dl (30-36); MCV 99.5 fl (81-99); MONOCYTES 11.4 % (0-12); NEUTROPHILS 70.4 % (39-80); PLATELET COUNT 203 K/uL (140-440); RBC 4.24 M/ul (4.3-5.7); RDW 15.4 (10.5-15.0)
[2023-03-23 05:33] VITALS: BP 109/70
[2023-03-23 05:44] LABS: ALBUMIN 2.7 g/dL (3.4-5.0); ALBUMIN/GLOBULIN RATIO 0.56 (1.1-2.4); ANION GAP 11.7 (7-21); BILIRUBIN, TOTAL 1.2 ng/dL (0.2-1.0); BUN/CREATININE RATIO 5.08 (6.0-28.6); CREATININE, SERUM 0.59 mg/dL (0.55-1.02); MAGNESIUM 1.9 mg/dL (1.8-2.4); PHOSPHORUS, INORGANIC 3.2 mg/dL (2.5-4.9); POTASSIUM 3.7 mmol/L (3.5-5.1); PROTEIN, TOTAL 7.5 g/dL (6.4-8.2)
[2023-03-23 09:06] VITALS: BP 104/70
[2023-03-23 09:56] LABS: INFLUENZA B NAA NEGATIVE (NEGATIVE); RESPIRATORY SYNCYTIAL VIR NAA NEGATIVE (NEGATIVE)
[2023-03-23 14:38] VITALS: BP 126/65
[2023-03-23 17:33] VITALS: BP 119/72
[2023-03-23 20:05] VITALS: BP 114/59
[2023-03-24 05:37] LABS: BASOPHILS 0.7 % (0-2); EOSINOPHILS 0.4 % (0-6); HEMATOCRIT 37.6 % (35.0-50.0); HEMOGLOBIN 12.9 g/dL (12.0-18.0); MCH 33.9 (27-36); MCHC 34.4 g/dl (30-36); MCV 98.4 fl (81-99); MONOCYTES 15.4 % (0-12); NEUTROPHILS 50.5 % (39-80); PLATELET COUNT 202 K/uL (140-440); RBC 3.82 M/ul (4.3-5.7); RDW 15.6 (10.5-15.0)
[2023-03-24 05:57] LABS: ALBUMIN 2.4 g/dL (3.4-5.0); ALBUMIN/GLOBULIN RATIO 0.57 (1.1-2.4); ANION GAP 8.9 (7-21); BILIRUBIN, TOTAL 1.1 ng/dL (0.2-1.0); BUN/CREATININE RATIO 3.57 (6.0-28.6); CALCIUM 8.5 mg/dL (8.5-10.1); CREATININE, SERUM 0.56 mg/dL (0.55-1.02); MAGNESIUM 1.8 mg/dL (1.8-2.4); PHOSPHORUS, INORGANIC 2.9 mg/dL (2.5-4.9); POTASSIUM 2.9 mmol/L (3.5-5.1); PROTEIN, TOTAL 6.6 g/dL (6.4-8.2)
[2023-03-24 06:19] VITALS: BP 109/67
[2023-03-24 09:36] VITALS: BP 97/57
[2023-03-24 13:30] VITALS: BP 106/58
[2023-03-24 17:59] VITALS: BP 109/62
[2023-03-24 21:41] VITALS: BP 113/54
[2023-03-25 06:19] VITALS: BP 109/56
[2023-03-25] MEDS ORDERED: METRONIDAZOLE250 MG PO (08:23)
[2023-03-25] MEDS ORDERED: CEFDINIR300 MG PO (08:23)
[2023-03-25 10:05] VITALS: BP 123/77
--- NOTE | 2023-03-25 10:42 | DS ---
[facility] [address] [place], [place] [address] Signed ADMISSION DATE: 03/21/2023 DISCHARGE DATE: 03/25/2023 FINAL DIAGNOSES: 1. Upper abdominal pain. 2. Nausea and vomiting. 3. Mild cirrhosis of the liver. 4. Anxiety and depression. 5. Migraine headaches. PROCEDURES: 1. CT scan of abdomen and pelvis. 2. Ultrasound of abdomen x2. 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 She and her apparently drank quite heavily in the past. She started to develop fatty liver and cirrhosis in association with the alcohol. She spent some time in [place] at the [facility] before the COVID pandemic. She was told by the [facility] that her cirrhosis of the liver was mild and nothing much more to do for her. She believes she has been negative for hepatitis C virus. She has had hepatitis A in the past. She has been immunized for hepatitis B. Her nurse practitioner is in [place], [place] about 45 minutes North of our hospital here at [facility] in [place], [place]. Therefore, Glenna has been going up to Dulce Nixon, who is a physician's field technical assistant with the liver and pancreas group with [facility] in [place], [place]. She also has been through multiple upper and lower endoscopies. Her brother of esophageal cancer following Alicea's esophagus. She has required dilation in the past associated with her hiatal hernia. Her last upper endoscopy was in 2021. She tells me that they have never found any varices. She also suffers with significant anxiety and has used marijuana to help go to sleep. Otherwise, she has significant insomnia. She also has a history of migraine headaches associated with nausea and vomiting. She had developed right upper quadrant and upper abdominal pain with vomiting. She came to our local emergency room for evaluation. Her blood work actually was not particularly concerning. Her CT scan of course showed the gallbladder wall little thickened and her left lobe where the liver is completely atrophied with occlusion of hepatic vein, which is well documented on multiple radiographic studies over the years. She seemed to have some mild pericholecystic edema. She does have a moderate hiatal hernia. The ultrasound confirmed a 9 mm gallbladder wall and apparently, she had a positive Painting sign. Common bile duct was normal at 5 mm. She had some sludge in the gallbladder, but no stones. I have been asked to admit her as a general surgeon on-call. Electronically Signed By: BON PATRICK MD 03/25/23 1042 PATIENT NAME: GLENNA FIGUEROA DISCHARGE SUMMARY DATE OF : 64 REPORT #: [id number] PHYSICIAN: BON PATRICK MD PCP: PATRICIA GRIFFITH NP REPORT IS CONFIDENTIAL AND NOT TO BE RELEASED WITHOUT AUTHORIZATION [address] [address] Signed HOSPITAL COURSE: Glenna was admitted as above. It took us several days to track down this information. In the meantime, we put her on cefepime and Flagyl and IV fluids and some pain control. We had to add some sumatriptan for her migraine headaches, which really helped. We gave her some hydroxyzine, which did nothing for the insomnia. I had gone back and reviewed radiographic studies clear back to 2019. There has never been any evidence of ascites. There was no discussion of veins in the abdomen. After a few days here in the hospital, we repeated the ultrasound and the spleen is actually normal in size. There is no ascites and it does not appear she has any varices. Of course, the liver has some coarsened echotexture. She has improved markedly now for the last couple of days. She has been tolerating a full liquid diet. I spent actual hours on the phone calling all [place] trying to talk with other specialists and track down her records. We have been able to obtain what we have reviewed above. At this point, she is doing better and she would like to go home on her regular medications and a regular diet. DISCHARGE PLANS AND MEDICATIONS: Glenna is going to be discharged to home on her regular diet. She can continue her regular medications at home. We are going to give her cefdinir at 300 mg one tablet p.o. b.i.d. for five additional days for a total of 10 days of antibiotics. She also had Flagyl 250 mg one p.o. t.i.d. for five additional days. She is welcome to perform her activities of daily living including walking up and down stairs, showering and bathing as usual. She is welcome to return to driving. She and her have specifically request that they establish with the liver group at [facility] in [place], [place]. We will go ahead and send that referral for her. We look forward to their input. She is going to follow up my office as needed. She has expressed understanding and agrees with the above plan. Bon Patrick MD ALB/MODL /[id number] cc: MD Patricia Lacy NP, Electronically Signed By: BON PATRICK MD 03/25/23 1042 PATIENT NAME: GLENNA FIGUEROA DISCHARGE SUMMARY DATE OF : 64 REPORT #: [id number] PHYSICIAN: BON PATRICK MD PCP: PATRICIA GRIFFITH NP REPORT IS CONFIDENTIAL AND NOT TO BE RELEASED WITHOUT AUTHORIZATION [address] David Rowe at [facility] Copies: BON PATRICK MD ~ Electronically Signed By: BON PATRICK MD 03/25/23 1042 PATIENT NAME: GLENNA FIGUEROA DISCHARGE SUMMARY DATE OF : 64 REPORT #: [id number] PHYSICIAN: BON PATRICK MD PCP: PATRICIA GRIFFITH NP REPORT IS CONFIDENTIAL AND NOT TO BE RELEASED WITHOUT AUTHORIZATION
== END 2023-03-25 10:08 | disposition home or self-care (01) | DRG 446 ==
LOC: ED 05:20 → MS 05:22
PROVIDERS: Family Medicine; ADMIT Colon & Rectal Surgery; ATTEND Colon & Rectal Surgery
DX: K80.10 Calculus of gallbladder with chronic cholecystitis without obstruction (principal); R11.2 Nausea with vomiting, unspecified; K74.60 Unspecified cirrhosis of liver; F41.9 Anxiety disorder, unspecified; F32.A Depression, unspecified; G43.909 Migraine, unspecified, not intractable, without status migrainosus; M79.7 Fibromyalgia; K21.9 Gastro-esophageal reflux disease without esophagitis; E78.5 Hyperlipidemia, unspecified; F10.10 Alcohol abuse, uncomplicated; K76.0 Fatty (change of) liver, not elsewhere classified; F12.90 Cannabis use, unspecified, uncomplicated; K44.9 Diaphragmatic hernia without obstruction or gangrene; Z98.890 Other specified postprocedural states; Z98.51 Tubal ligation status; Z87.891 Personal history of nicotine dependence; Z88.2 Allergy status to sulfonamides; Z79.899 Other long term (current) drug therapy
CPT/HCPCS: 36415; 74177; 76705; 80053; 81003; 82140; 83690; 83735; 84100; 84134; 85025; 85610; 87502; 93005; 93010; 96365; 96366; 96372; 96375; 96376; A9270; C9803; G0378; J0692; J0780; J1170; J2270; J2405; J3411; J3420; J3475; J3480; J3490; J7040; J7042; J7060; J7121; Q0177; U0002

== ENCOUNTER 2024-01-27 10:12 | Emergency (ER) | payer BC ==
[~2024-01-27] VITALS: Ht 180.3 cm; Wt 93.1 kg
[~2024-01-27 10:12] MED LIST changes: +ATIVAN0.5 MG PO; +BUPROPION HCL75 MG PO; +CEFDINIR300 MG PO; +ESTRADIOL42.5 GM VAGINAL; +FLUOXETINE HCL20 MG PO; +METRONIDAZOLE250 MG PO; +OMEPRAZOLE20 MG PO; +ONDANSETRON ODT4 MG PO; +PROZAC10 MG PO
[2024-01-27 11:28] LABS: BASOPHILS 0.4 % (0-2); EOSINOPHILS 0.2 % (0-6); HEMATOCRIT 46.1 % (35.0-50.0); HEMOGLOBIN 16.3 g/dL (12.0-18.0); MCHC 35.3 g/dl (30-36); MCV 96.2 fl (81-99); MONOCYTES 6.8 % (0-12); NEUTROPHILS 80.6 % (39-80); PLATELET COUNT 202 K/uL (140-440); RBC 4.79 M/ul (4.3-5.7); RDW 14.6 (10.5-15.0)
[2024-01-27] MEDS ORDERED: ondansetron HCL 4 MG/2 ML VIAL IV ONE (11:30)
[2024-01-27 11:38] LABS: ALBUMIN 3.9 g/dL (3.4-5.0); ALBUMIN/GLOBULIN RATIO 0.74 (1.1-2.4); ANION GAP 14.9 (7-21); BILIRUBIN, TOTAL 2.6 ng/dL (0.2-1.0); BUN/CREATININE RATIO 3.84 (6.0-28.6); CALCIUM 9.3 mg/dL (8.5-10.1); CREATININE, SERUM 0.78 mg/dL (0.55-1.02); MAGNESIUM 1.6 mg/dL (1.8-2.4); POTASSIUM 2.9 mmol/L (3.5-5.1); PROTEIN, TOTAL 9.2 g/dL (6.4-8.2)
[2024-01-27] MEDS ORDERED: SODIUM CHLORIDE 0.9% 1,000 ML IV ONE (12:30)
[2024-01-27] MEDS ORDERED: CHLORDIAZEPOXIDE 25 MG CAP PO ONE (12:30)
[2024-01-27 12:43] LABS: BILIRUBIN, URINE NEGATIVE (negative); BLOOD/HGB, URINE NEGATIVE (Negative); KETONE, URINE NEGATIVE (Negative); LEUK ESTERASE, URINE LARGE (negative); NITRITE, URINE POSITIVE (negative)
[2024-01-27 12:49] LABS: BACTERIA, URINE 2+ /hpf (negative); CASTS, URINE NONE SEEN \\lpf; COLLECTION TYPE, URINE CLEAN CATCH; RED BLOOD CELLS, URINE 0-1 /hpf (0-5); WHITE BLOOD CELLS, URINE >50 /HPF (0-5)
[2024-01-27 12:50] LABS: CRYSTALS, URINE NONE SEEN (0-1+); EPITHELIAL CELLS, URINE SQUAMOUS 2+ /lpf (0-1+); REFLEX CULTURE, URINE No (No)
[2024-01-27] MEDS ORDERED: CEPHALEXIN500 MG PO (14:59)
[2024-01-27] MEDS ORDERED: CEPHALEXIN MONOHYDRATE 500 MG CAP PO ONE (15:00)
[2024-01-27] MEDS ORDERED: POTASSIUM CHLORIDE 10 MEQ TABCR PO ONE (15:00)
[2024-01-27 15:18] VITALS: BP 116/68
== END 2024-01-27 15:20 | disposition home or self-care (01) ==
LOC: ED 10:12
PROVIDERS: Emergency Medicine
DX: F41.9 Anxiety disorder, unspecified (principal); E87.6 Hypokalemia; K70.30 Alcoholic cirrhosis of liver without ascites; M79.7 Fibromyalgia; K21.9 Gastro-esophageal reflux disease without esophagitis; E78.5 Hyperlipidemia, unspecified; G43.909 Migraine, unspecified, not intractable, without status migrainosus; Z87.891 Personal history of nicotine dependence; Z88.2 Allergy status to sulfonamides; Z79.899 Other long term (current) drug therapy
CPT/HCPCS: 36415; 80053; 81001; 83690; 83735; 85025; 96360; 96361; 99284-25; A9270; J7030